=== PATIENT | male | born 1950 | race African-American/Black ===

== ENCOUNTER 2016-09-02 20:00 | Emergency (ER) | payer BC ==
[2016-09-02 20:37] VITALS: BP 132/79; PULSE 56; TEMP 97.6; BMI 29.4
--- NOTE | 2016-09-02 22:38 | PDOC ---
History of Present Illness - General Chief Complaint: Injury Stated Complaint: RT ANKLE INJURY Time Seen by Provider: 09/02/16 21:21 History Source: Patient Exam Limitations: No Limitations - History of Present Illness Initial Comments: 09/02/16 22:33 66 yr male with injury to right ankle monday. Pt states at work a heavy lift ran into his ankle. Pt has pain and swelling. Occurred: reports: other (mondayAugust 31) Past History - Past Medical History Allergies/Adverse Reactions: Allergies Allergy/AdvReac Type Severity Reaction Status Date / Time shellfish derived Allergy Mild Verified 09/02/16 20:37 Home Medications: Ambulatory Orders NK [No Known Home Medication] 12/26/13 Other medical history: glacoma - Immunization History Immunization Up to Date: Yes - Psycho/Social/Smoking Cessation Hx Anxiety: No Suicidal Ideation: No Smoking Status: No Smoking History: Never smoked Have you smoked in the past 12 months: Yes Number of Cigarettes Smoked Daily: 0 Cigars Per Day: 1 Information on smoking cessation initiated: No Hx Alcohol Use: No Drug/Substance Use Hx: No Substance Use Type: None Review of Systems - Review of Systems Able to Perform ROS?: Yes Is the patient limited German proficient: No Constitutional: No: Symptoms Reported HEENTM: No: Symptoms Reported Respiratory: No: Symptoms reported Cardiac (ROS): No: Symptoms Reported ABD/GI: No: Symptoms Reported : No: Symptoms Reported Musculoskeletal: Yes: See HPI Integumentary: No: Symptoms Reported *Physical Exam - Vital Signs Last Vital Signs Temp Pulse Resp BP Pulse Ox 97.6 F 56 L 18 132/79 96 09/02/16 20:34 09/02/16 20:34 09/02/16 20:34 09/02/16 20:34 09/02/16 20:34 - Physical Exam General Appearance: Yes: Nourished, Appropriately Dressed HEENT: positive: EOMI, ELEUTERIO Musculoskeletal: positive: Normal Inspection Extremity: positive: Normal Capillary Refill, Normal Range of Motion, Tender ( right lateral maleoulus, nv intact warm and pink , FROM), Swelling (lateral mal right ankle to posterior maleoulus, minimal bony tenderness) Integumentary: positive: Normal Color, Dry, Warm Neurologic: positive: Fully Oriented, Alert, Normal Mood/Affect, Normal Response , Motor Strength 5/5 Procedures - Splinting Pre-Made Type: aircast ED Treatment Course - RADIOLOGY Radiology Studies Ordered: Category Date Time Status ANKLE & FOOT-RIGHT* [RAD] Stat Radiology 09/02/16 21:21 Taken Medical Decision Making - Medical Decision Making 09/02/16 22:35 cc: right ankle injury at work will xray to r/o fx no deformity mild swelling to right lateral ankle noted air cast splint placed nv intact *DC/Admit/Observation/Transfer Diagnosis at time of Disposition: Contusion, ankle Qualifiers: Encounter type: initial encounter Laterality: right Qualified Code(s): S90.01XA - Contusion of right ankle, initial encounter - Discharge Dispostion Disposition: HOME Condition at time of disposition: Good - Referrals Referrals: Bladimir Prater MD [Primary Care Provider] - - Patient Instructions Additional Instructions: elevate and apply ice every 2hrs for 20 minutes take motrin as needed for pain use the splint at all times except to bathe no strenuous activity until pain has improved follow with your orthopedist next week - Post Discharge Activity Work/School Note: Back to Work
== END 2016-09-02 23:11 | disposition home or self-care (01) ==
LOC: SUPCPDRO 20:00 → JERFT 20:00
PROC: 2W3LX1Z Immobilization of Right Lower Extremity using Splint (ICD-10-PCS; principal; 2016-09-02)
DX: S90.01XA Contusion of right ankle, initial encounter (principal); W20.8XXA Other cause of strike by thrown, projected or falling object, initial encounter; Y93.89 Activity, other specified; Y92.89 Other specified places as the place of occurrence of the external cause; Y99.0 Civilian activity done for income or pay
CPT/HCPCS: 73610-TC-RT; 73630-TC-RT; 99281-25

== ENCOUNTER 2018-01-31 23:42 | Emergency (ER) | payer OTHER, BC ==
[2018-01-31 23:46] VITALS: BMI 29.1
--- NOTE | 2018-02-01 00:52 | PDOC ---
History of Present Illness - General Chief Complaint: Pain Stated Complaint: RT LEG PAIN Time Seen by Provider: 02/01/18 00:51 History Source: Patient Exam Limitations: No Limitations - History of Present Illness Initial Comments: 02/01/18 02:32 67-year-old male with history of glaucoma presents to the ER with atraumatic pain and swelling of the right great toe. Pain is constant, severe, exacerbated by weightbearing. Patient denies fever/chills/weakness/paresthesias in the affected extremity. REVIEW OF SYSTEMS CONSTITUTIONAL: No fever, no chills, no fatigue EYES: No visual changes ENT: No ear pain, no sore throat CARDIOVASCULAR: No chest pain, no palpitations RESPIRATORY: No cough, no SOB GI: No abdominal pain, no nausea, no vomiting, no constipation, no diarrhea GENITOURINARY: No dysuria, no frequency, no hematuria MUSKULOSKELETAL: No backpain, r. foot pain, no myalgias SKIN: No rash NEURO: No headache EXAMINATION CONSTITUTIONAL: Well-appearing; well-nourished; in no apparent distress HEAD: Normocephalic; atraumatic CARD: Normal S1, S2; no murmurs, rubs, or gallops RESP: Normal chest excursion with respiration; breath sounds clear and equal bilaterally; no wheezes, rhonchi, or rales EXT: Right foot: + Soft tissue swelling and erythema overlying the first MTP joint with tenderness to palpation and pain on passive/active extension/flexion at the first MTP; distal pulses intact SKIN: Warm, dry, no rash NEURO: No focal neurological deficiencies. Past History - Past Medical History Allergies/Adverse Reactions: Allergies Allergy/AdvReac Type Severity Reaction Status Date / Time No Known Allergies Allergy Verified 01/31/18 23:46 Home Medications: Ambulatory Orders NK [No Known Home Medication] 12/26/13 COPD: No - Immunization History Immunization Up to Date: Yes - Suicide/Smoking/Psychosocial Hx Smoking Status: No Smoking History: Never smoked Have you smoked in the past 12 months: Yes Number of Cigarettes Smoked Daily: 0 Cigars Per Day: 1 Hx Alcohol Use: No Drug/Substance Use Hx: No Substance Use Type: None *Physical Exam - Vital Signs Last Vital Signs Temp Pulse Resp BP Pulse Ox 97.7 F 60 18 131/91 100 01/31/18 23:43 01/31/18 23:43 01/31/18 23:43 01/31/18 23:43 01/31/18 23:43 ED Treatment Course - LABORATORY CBC & Chemistry Diagram: 02/01/18 01:14 02/01/18 01:14 Medical Decision Making - Medical Decision Making 02/01/18 02:35 67-year-old male presents with signs and symptoms of acute podagra. CBC is within normal limit. Foot x-ray reveals no evidence of joint erosion. Patient's received indomethacin with improvement in the level of his pain. Will discharge with Indocin with PMD follow-up. *DC/Admit/Observation/Transfer Diagnosis at time of Disposition: Podagra - Discharge Dispostion Disposition: HOME Condition at time of disposition: Stable - Referrals Referrals: Bladimir Prater MD [Primary Care Provider] - - Patient Instructions Printed Discharge Instructions: DI for Gout Additional Instructions: Your symptoms are consistent with podagra. Please refrain from alcohol and red meat intake during the current flare. Take Indocin as instructed. Follow-up with your primary care physician in 24-48 hours. The doctor may consider treating you with a taper course or prednisone or he may decide to continue treatment with Indocin. Indocin is a potent anti-inflammatory nonsteroidal medication which may affect her kidney function as well as cause stomach ulcers. It should not be taken for an extended period of time. Return immediately for severe pain, fever, difficulty bearing weight. - Post Discharge Activity
[2018-02-01] MEDS ORDERED: INDOMETHACIN 50 MG CAPSULE PO ONE (01:04)
[2018-02-01 01:51] LABS: BASO % 0.3 % (0-2.0); EOS % 1.8 % (0-4.5); HEMATOCRIT 43.2 % (35.4-49); HEMOGLOBIN 14.4 GM/dL (11.7-16.9); LYMPH % 35.4 % (8-40); MCH 30.2 pg (25.7-33.7); MCHC 33.2 g/dl (32.0-35.9); MEAN CELL VOLUME 90.8 fl (80-96); MEAN PLT VOLUME 9.4 fl (7.5-11.1); MONO % 7.9 % (3.8-10.2); NEUT % 54.6 % (42.8-82.8); PLATELET COUNT 199 K/MM3 (134-434); RBC 4.76 M/mm3 (4.00-5.60); RDW 12.9 % (11.9-15.9); WHITE BLOOD COUNT 7.3 K/mm3 (4.0-10.0)
[2018-02-01 01:56] LABS: ALBUMIN 3.7 g/dl (3.4-5.0); ALK PHOS 60 U/L (45-117); ANION GAP 7 MMOL/L (8-16); BILIRUBIN,TOTAL 0.4 mg/dL (0.2-1); BLOOD UREA NITROGEN 16 mg/dL (7-18); CALCIUM 9.3 mg/dL (8.5-10.1); CHLORIDE 109 mmol/L (98-107); CO2 26 mmol/L (21-32); CREATININE 1.2 mg/dL (0.55-1.3); GLUCOSE,RANDOM 84 mg/dL (74-106); POTASSIUM 4.2 mmol/L (3.5-5.1); SGOT/AST 20 U/L (15-37); SGPT/ALT 28 U/L (13-61); SODIUM 143 mmol/L (136-145); URIC ACID 6.9 mg/dL (2.6-7.2)
[2018-02-01 05:09] VITALS: BP 128/73; PULSE 77; TEMP 98.2
== END 2018-02-01 03:12 | disposition home or self-care (01) ==
LOC: JER 23:42
DX: M10.9 Gout, unspecified (principal)
CPT/HCPCS: 36415; 73630-TC-RT-FY; 80053; 84550; 85025; 86140; 99282-25

== ENCOUNTER 2018-02-27 10:53 | Emergency (ER) | payer OTHER, BC ==
[2018-02-27 11:01] VITALS: BP 138/99; PULSE 54; TEMP 98; BMI 28.0
--- NOTE | 2018-02-27 12:01 | PDOC ---
History of Present Illness - General Chief Complaint: Pain, Acute Stated Complaint: PAIN,RT SHOULDER/RT SIDE Time Seen by Provider: 02/27/18 11:50 - History of Present Illness Initial Comments: 02/27/18 11:57 67 roll male with a past medical history significant for dyslipidemia presents for evaluation of right shoulder pain. He states while at work 2 days ago he lifted a heavy painting felt pain in the posterior aspect of his right shoulder and thought nothing of it he had the same mechanism next day and started to have increasing pain treated with the Naprosyn and hotpack he reports to the emergency room today for further evaluation and treatment options. He describes his pain is achy exacerbated with motion relieved with rest and free of radiation. Points to the area of the right upper back and superior lateral aspect of the right upper arm no prior problems with the right arm or shoulder past Past History - Past Medical History Allergies/Adverse Reactions: Allergies Allergy/AdvReac Type Severity Reaction Status Date / Time No Known Allergies Allergy Verified 02/27/18 10:56 Home Medications: Ambulatory Orders Indomethacin [Indocin] 25 mg PO BID #6 ml 02/01/18 COPD: No - Immunization History Immunization Up to Date: Yes - Suicide/Smoking/Psychosocial Hx Smoking Status: No Smoking History: Never smoked Have you smoked in the past 12 months: Yes Number of Cigarettes Smoked Daily: 1 Cigars Per Day: 1 Information on smoking cessation initiated: No Hx Alcohol Use: No Drug/Substance Use Hx: No Substance Use Type: None Review of Systems - Review of Systems Musculoskeletal: Yes: See HPI, Joint Pain *Physical Exam - Vital Signs Last Vital Signs Temp Pulse Resp BP Pulse Ox 98.0 F 54 L 16 138/99 99 02/27/18 10:57 02/27/18 10:57 02/27/18 10:57 02/27/18 10:57 02/27/18 10:57 - Physical Exam Comments: 02/27/18 11:58 Right shoulder skin color and temperature are normal range of motion is full with discomfort at terminal external rotation and abduction. 3 out of 5 strength with supraspinous isolation and external rotation. Positive impingement maneuvers no gross sensorimotor deficits negative Spurling maneuver is neurovascularly intact. Medical Decision Making - Medical Decision Making 02/27/18 11:59 Is is most likely a rotator cuff tear I'll have him follow-up with orthopedic surgery for further evaluation and treatment options *DC/Admit/Observation/Transfer Diagnosis at time of Disposition: Right shoulder strain - Discharge Dispostion Disposition: HOME Condition at time of disposition: Stable Decision to Admit order: No - Referrals Referrals: Bladimir Prater MD [Primary Care Provider] - Robel Sanders MD [Staff Physician] - - Patient Instructions Printed Discharge Instructions: DI for Shoulder Pain Additional Instructions: Continue with the Naprosyn as directed. Return to the emergency room should symptoms worsen or go unresolved. Please follow-up with orthopedic surgery in 2- 3 days for further evaluation and treatment options. - Post Discharge Activity
== END 2018-02-27 12:06 | disposition home or self-care (01) ==
LOC: JERFT 10:53
DX: S46.811A Strain of other muscles, fascia and tendons at shoulder and upper arm level, right arm, initial encounter (principal); X50.0XXA Overexertion from strenuous movement or load, initial encounter; Y93.89 Activity, other specified; Y92.59 Other trade areas as the place of occurrence of the external cause; Y99.0 Civilian activity done for income or pay; E78.5 Hyperlipidemia, unspecified
CPT/HCPCS: 99281-25

== ENCOUNTER 2018-11-11 07:33 | Emergency (ER) | payer BC, OTHER | END 2018-11-11 12:00 | disposition home or self-care (01) | LOC: JER 07:33 ==

== ENCOUNTER 2019-01-30 01:56 | Emergency (ER) | payer BC ==
--- NOTE | 2019-01-30 02:28 | PDOC ---
*Physical Exam - Vital Signs Last Vital Signs Temp Pulse Resp BP Pulse Ox 98.3 F 58 L 17 156/90 97 01/30/19 02:00 01/30/19 02:00 01/30/19 02:00 01/30/19 02:00 01/30/19 02:00 Medical Decision Making - Medical Decision Making 01/30/19 02:28 Patient seen by the advanced practice provider under my direct supervision. Ancillary testing reviewed as necessary. I agree with plan as outlined by the advanced practice provider. Discharge - Discharge Information Condition: Fair - Follow up/Referral Referrals: Bladimir Prater MD [Primary Care Provider] - - Patient Discharge Instructions - Post Discharge Activity
[2019-01-30] MEDS ORDERED: MAG HYDROX/AL HYDROX/SIMETH 30 ML UNIT-DOSE CUP PO ONE (02:45)
[2019-01-30] MEDS ORDERED: RANITIDINE HCL 150 MG TABLET (FP) PO ONE (02:45)
[2019-01-30] MEDS ORDERED: SODIUM CHLORIDE FOR INHALATION 3 ML VIAL.NEB IH ONE (02:45)
[2019-01-30 02:46] VITALS: BP 156/90; PULSE 58; TEMP 98.3; BMI 27.5
[2019-01-30] MEDS ORDERED: MAG HYDROX/AL HYDROX/SIMETH 30 ML UNIT-DOSE CUP ONE (03:06)
--- NOTE | 2019-01-30 03:07 | PDOC ---
History of Present Illness - General Chief Complaint: Sore Throat Stated Complaint: SORE THROAT Time Seen by Provider: 01/30/19 02:24 History Source: Patient - History of Present Illness Initial Comments: 01/30/19 02:59 68-year-old male with history of hyperlipidemia seen in this ER on October 2018 report that he was mowing the lawn without a mask and had some irritation to the throat. Patient reports that since that incident patient has been having irritation in the throat that is worse at night. Patient is an occasional cigar smoker and marijuana smoker. Patient reports that tonight he had a cigar. Patient unable to lay down due to the throat irritation. Denies fever/ chills, nausea, vomiting, diarrhea, abdominal pain, chest pain. Past History - Past Medical History Allergies/Adverse Reactions: Allergies Allergy/AdvReac Type Severity Reaction Status Date / Time No Known Allergies Allergy Verified 01/30/19 02:23 Home Medications: Ambulatory Orders Albuterol Sulfate Inhaler - [Ventolin HFA Inhaler -] 2 inh PO Q6H PRN #1 inh Atorvastatin Ca [Lipitor] 40 mg PO HS 11/11/18 Methylprednisolone [Medrol Dose Kayode] 4 mg PO ASDIR #21 tablet 11/11/18 COPD: No Hypercholesterolemia: Yes - Immunization History Immunization Up to Date: Yes - Psycho Social/Smoking Cessation Hx Smoking Status: No Smoking History: Current some day smoker Have you smoked in the past 12 months: Yes Number of Cigarettes Smoked Daily: 2 Cigars Per Day: 1 Information on smoking cessation initiated: No Hx Alcohol Use: Yes Drug/Substance Use Hx: No Substance Use Type: None Review of Systems - Review of Systems Able to Perform ROS?: Yes Is the patient limited Upper Sorbian proficient: No Constitutional: No: Symptoms Reported, See HPI, Chills, Diaphoresis, Fever, Loss of Appetite, Malaise, Night Sweats, Weakness, Weight Stable, Unintentional Wgt. Loss, Unexplained wgt Loss, Other HEENTM: Yes: Other (throat irritation). No: Symptoms Reported, See HPI, Eye Pain, Blurred Vision, Tearing, Recent change in vision, Double Vision, Cataracts , Ear Pain, Ocular Prothesis, Ear Discharge, Nose Pain, Nose Congestion, Tinnitus, Nose Bleeding, Hearing Loss, Throat Pain, Throat Swelling, Mouth Pain , Dental Problems, Difficulty Swallowing, Mouth Swelling *Physical Exam - Vital Signs Last Vital Signs Temp Pulse Resp BP Pulse Ox 98.3 F 58 L 17 156/90 97 01/30/19 02:00 01/30/19 02:00 01/30/19 02:00 01/30/19 02:00 01/30/19 02:00 - Physical Exam General Appearance: Yes: Appropriately Dressed HEENT: positive: Pharyngeal Erythema Respiratory/Chest: positive: Lungs Clear, Normal Breath Sounds Extremity: positive: Normal Capillary Refill, Normal Inspection Integumentary: positive: Normal Color, Dry, Warm Neurologic: positive: Fully Oriented, Alert Medical Decision Making - Medical Decision Making 01/30/19 03:03 A: throat irritation (chronic) P: maalox, zantac, saline neb x1 Talked to patient extensively about ENT and GI follow-up. It is possible that this is GERD related. Patient reports that his PCP Dr. Santos is with [facility] and he will follow-up for follow ups. Discharge - Discharge Information Problems reviewed: Yes Clinical Impression/Diagnosis: Throat irritation Condition: Fair - Follow up/Referral Referrals: Bladimir Prater MD [Primary Care Provider] - Call tomorrow - Patient Discharge Instructions Patient Printed Discharge Instructions: Sore Throat Additional Instructions: Drink plenty of fluids Gargle with warm salty water Drink warm liquids please follow up with your doctor as soon as possible. You need to also follow up with ENT and GI Additional Instructions: * Please call your personal physician to report your Emergency Department visit and to report your progress, if any. * If there is no improvement in symptoms in 2 days call your physician. * Return to the Emergency Department for any worsening symptoms. - Post Discharge Activity
== END 2019-01-30 04:29 | disposition home or self-care (01) ==
LOC: JER 01:56
PROC: 3E0337Z Introduction of Electrolytic and Water Balance Substance into Peripheral Vein, Percutaneous Approach (ICD-10-PCS; principal; 2019-01-30)
DX: R07.0 Pain in throat (principal); E78.00 Pure hypercholesterolemia, unspecified; Z72.0 Tobacco use
CPT/HCPCS: 99281-25